=== PATIENT | female | born 1970 | race African-American/Black ===

== ENCOUNTER 2019-10-04 19:25 | Emergency (ER) | payer OTHER ==
[~2019-10-04] VITALS: Ht 165.1 cm; Wt 72.6 kg
[~2019-10-04 19:25] MED LIST: CITRATE OF MAG296 ML PO; HYDROCHLOROTH12.5 MG PO; PHENERGAN 25 MG25 M1 PO; RANITIDINE 150150 M1 PO
[2019-10-04 20:00] LABS: URINE BILIRUBIN NEGATIVE (Negative); URINE BLOOD NEGATIVE (Negative); URINE CLARITY CLEAR; URINE COLOR YELLOW; URINE GLUCOSE-RANDOM* NEGATIVE (Negative); URINE KETONES NEGATIVE (Negative); URINE LEUKOCYTES-REFLEX NEGATIVE (Negative); URINE NITRITE-REFLEX NEGATIVE (Negative); URINE PROTEIN (DIPSTICK) NEGATIVE (Negative); URINE SPECIFIC GRAVITY 1.025 (1.005-1.035); URINE UROBILINOGEN 0.2 E.U./dl (0.2-1.0)
[2019-10-04] MEDS ORDERED: NORCO 5-325 TA1 EAC1 PO (21:05)
[2019-10-04] MEDS ORDERED: FLAGYL500 M1 PO (21:05)
[2019-10-04 21:29] VITALS: BP 146/84
== END 2019-10-04 21:29 | disposition home or self-care (01) ==
LOC: ER 19:25
PROVIDERS: Physician Assistant
DX: M54.2 Cervicalgia (principal); M54.5 Low back pain; N93.9 Abnormal uterine and vaginal bleeding, unspecified; I10 Essential (primary) hypertension; M19.90 Unspecified osteoarthritis, unspecified site; Z98.51 Tubal ligation status; Z88.0 Allergy status to penicillin; W18.39XA Other fall on same level, initial encounter; Y93.89 Activity, other specified; Y92.89 Other specified places as the place of occurrence of the external cause; Y99.8 Other external cause status

== ENCOUNTER 2021-09-08 14:40 | Emergency (ER) | payer OTHER ==
[~2021-09-08] VITALS: Ht 167.6 cm; Wt 81.7 kg
[~2021-09-08 14:40] MED LIST changes: +FLAGYL500 M1 PO; +NORCO 5-325 TA1 EAC1 PO
[2021-09-08 19:14] LABS: CALCIUM 8.9 mg/dL (8.5-10.1); CREATININE 0.8 mg/dL (0.6-1.0); POTASSIUM 4.6 mmol/L (3.5-5.1)
[2021-09-08 19:19] LABS: ALBUMIN 3.2 g/dL (3.4-5.0); TOTAL BILIRUBIN 0.3 mg/dL (0.2-1.0); TOTAL PROTEIN 8.7 g/dL (6.4-8.2)
[2021-09-08 19:45] LABS: ABSOLUTE NEUTROPHILS 4.8 thou/uL (1.4-8.2); BASOPHILS 0.5 % (0.0-2.0); HEMATOCRIT 38.3 % (37.0-47.0); HEMOGLOBIN 12.7 gm/dL (12.0-15.0); LYMPHOCYTES 16.1 % (24.0-44.0); MCH 30.2 pg (26.0-34.0); MCHC 33.1 g/dL (28.0-37.0); MCV 91.2 fL (80.0-100.0); MONOCYTES 8.4 % (1.0-8.0); PLATELET COUNT 99 thou/uL (150-400); RDW 14.7 % (10.5-14.5); WBC 6.4 thou/uL (4.0-11.0)
[2021-09-08 21:13] LABS: URINE BILIRUBIN 2+ (Negative); URINE BLOOD 3+ (Negative); URINE CLARITY SL CLOUDY; URINE COLOR ORANGE; URINE GLUCOSE-RANDOM* NEGATIVE (Negative); URINE KETONES TRACE (Negative); URINE LEUKOCYTES-REFLEX 1+ (Negative); URINE NITRITE-REFLEX NEGATIVE (Negative); URINE PROTEIN (DIPSTICK) 3+ (Negative); URINE SPECIFIC GRAVITY >= 1.030 (1.005-1.035); URINE UROBILINOGEN 0.2 E.U./dl (0.2-1.0)
[2021-09-08 21:14] LABS: ICTOTEST (BILI CONFIRMATORY) Positive (Negative)
[2021-09-08 21:21] LABS: HYALINE CASTS >10 Many /LPF (None Seen); SQUAMOUS 4-10 Moderate /LPF (0-3)
[2021-09-08 21:22] LABS: MUCUS 4-6 Moderate strn/LPF (None Seen)
[2021-09-08 21:27] LABS: CRYSTALS None Seen /LPF (None Seen); URINE RBC 1-2 Rare /HPF (NONE SEEN); URINE WBC-REFLEX 6-15 Few /HPF (0-5)
[2021-09-08] MEDS ORDERED: TIZANIDINE HCL 22 M1 PO (21:29)
[2021-09-08] MEDS ORDERED: NORVASC5 MG PO (21:29)
[2021-09-08] MEDS ORDERED: DULOXETINE HCL30 MG PO (21:30)
[2021-09-08] MEDS ORDERED: PROAIR HFA8.5 GM INH (21:30)
[2021-09-08] MEDS ORDERED: CEPHALEXIN500 MG PO (21:34)
[2021-09-08 22:27] VITALS: BP 107/60
== END 2021-09-08 23:00 | disposition home or self-care (01) ==
LOC: ER 14:40
PROVIDERS: Physician Assistant
DX: U07.1 COVID-19 (principal); M19.90 Unspecified osteoarthritis, unspecified site; I10 Essential (primary) hypertension; Z98.890 Other specified postprocedural states; Z98.51 Tubal ligation status; Z79.51 Long term (current) use of inhaled steroids; Z79.899 Other long term (current) drug therapy; Z88.0 Allergy status to penicillin